=== PATIENT | male | born 1950 | race Caucasian/White ===

== ENCOUNTER → 2017-03-19 | Outpatient (CLI) | payer OTHER ==
[~2017-03-19] MED LIST: ALDACTONE PO; ALFUZOSIN HCL10 MG PO; AMBIEN10 MG PO; AMIODARONE PO; ASPIR-TRIN325 MG PO; ASPIRIN PO; ASPIRIN81 M2 PO; AUGMENTIN PO; CORDARONE200 M1 PO; ELIQUIS5 MG PO; FOLIC ACID1 MG PO; FUROSEMIDE40 MG PO; K-DUR20 ME2 PO; LANOXIN PO; LOPID600 MG PO; METOPROLOL PO; METOPROLOL SUC100 MG PO; MONTELUKAST SOD10 MG PO; PLAVIX PO; PRAVASTATIN SOD40 MG PO; RYTHMOL150 M1 PO; RYTHMOL150 MG PO; SYMBICORT INH; THIAMINE HCL100 M1 PO; TOPROL XL PO; TRAZODONE PO; VITAMIN B-1100 M1 PO; ZESTRIL5 MG PO
--- NOTE | ~2017-03-19 | CT2 ---
[facility] A Service of [facility] RADIOLOGY TEXT RESULTS PATIENT: DONOVAN BRYAN LOCATION: [facility] : 46 UNIT #: [id number] AGE: [address]: Gino Lane MD SEX: M ORDER DR: [id number] [facility] [address]. [place], [place] [address] [id number] O MR#: [id number] Acc #: [id number] NAME: DONOVAN BRYAN : 1950 SEX: M STUDY DATE/TIME: 03/19/2017 12:07 UNIT: [facility] ROOM: STUDY DESCRIPTION: CT Abd and Pelv W Cont Attending Physician: Gino Lane M.D. Referring Physician: Gino Lane M.D. Ordering Physician: Gino Lane M.D. Primary Care Physician: Bety Wilkerson M.D. MEDICAL IMAGING REPORT This report is preliminary unless electronic signature is present EXAM Abdomen and pelvis CT with contrast 03/19/2017. INDICATIONS 67-year-old male with history of prostate cancer. Recent diagnosis of prostate cancer; difficulty urinating with urinary frequency for 2-3 months. Observation for suspected malignant neoplasm and active malignancy. Metastatic screening. TECHNIQUE Contrast enhanced CT abdomen and pelvis was performed. This CT exam was performed with one or more of the following radiation dose reduction techniques: automatic exposure control, adjustment of mA and/or kV according to patient size, and iterative reconstruction. COMPARISON No comparisons. FINDINGS CT ABDOMEN: Included lung bases demonstrate emphysema. No suspicious pulmonary nodule. No pericardial effusion or pleural effusion. Aorta demonstrates atherosclerotic change. Spleen, adrenal glands, pancreas, and gallbladder unremarkable. There is mild fatty infiltration of the liver. Kidneys demonstrate cortical scarring, but are otherwise unremarkable. CT PELVIS: The bladder demonstrates prolapse into the pelvis. The prostate is enlarged, measuring 3.9 x 4.6 cm with mass effect upon the bladder base. No bladder wall thickening. No drainable fluid collection in the pelvis. [facility] A Service of [facility] RADIOLOGY TEXT RESULTS PATIENT: DONOVAN BRYAN [facility] #: [id number] : 46 UNIT #: [id number] AGE: [address]: Gino Lane MD SEX: M ORDER DR: Moderate stool burden in the colon. Appendix normal. No retroperitoneal adenopathy or pelvic adenopathy. Inguinal canals unremarkable. There are degenerative changes in the lower lumbar spine related to degenerative disc disease, and there is loss of the expected lumbar curve, but no acute fracture or malalignment. No suspicious bone lesion. Bone scan would be complementary for further assessment, if there is concern for metastases. There are chronic rib fractures bilaterally. IMPRESSION 1. No findings to suggest metastatic disease in the abdomen or pelvis. 2. Prostatomegaly with mass effect on the bladder. No adenopathy. 3. Fatty infiltration of the liver. 4. Cortical scarring of the kidneys. 5. Degenerative change of the lumbar spine. No suspicious bone lesion. Dictated by... Angel Pizarro M.D. THIS IS AN ELECTRONICALLY VERIFIED REPORT Angel Pizarro M.D. at 03/19/2017 4:19 PM Preston TD: 03/19/2017 14:42 JOB #: [id number] MEDICAL IMAGING REPORT Page 1 of 1 COPY
[2017-03-19 12:40] LABS: POC - CREATININE 0.88 mg/dL (0.64-1.27); POC - GFR >60.0 mL/min (>60)
== END | disposition home or self-care (01) ==
LOC: CCAT 11:06
PROVIDERS: Urology
DX: C61 Malignant neoplasm of prostate (principal); K76.0 Fatty (change of) liver, not elsewhere classified; N28.89 Other specified disorders of kidney and ureter; M47.896 Other spondylosis, lumbar region
CPT/HCPCS: 74177; 82565; Q9967

== ENCOUNTER → 2017-04-02 | Outpatient (CLI) | payer OTHER ==
--- NOTE | ~2017-04-02 | CR181 ---
[facility] A Service of [facility] RADIOLOGY TEXT RESULTS PATIENT: DONOVAN BRYAN LOCATION: [facility] : 46 UNIT #: [id number] AGE: [address]: Gino Lane MD SEX: M ORDER DR: [id number] [facility] [address] [place], [place] [address] [id number] O MR#: [id number] Acc #: [id number] NAME: DONOVAN BRYAN : 1950 SEX: M STUDY DATE/TIME: 04/02/2017 13:14 UNIT: [facility] ROOM: STUDY DESCRIPTION: CR Lumbar Spine 2 or 3 Views Attending Physician: Gino Lane M.D. Referring Physician: Gino Lane M.D. Ordering Physician: Gino Lane M.D. Primary Care Physician: Bety Wilkerson M.D. MEDICAL IMAGING REPORT This report is preliminary unless electronic signature is present EXAM 3 views were spine 04/02/2017 HISTORY Hot spot on bone scan. Prostate cancer. COMPARISON Whole-body bone scan 03/19/20192016. Lumbar spine radiographs 01/08/2017. FINDINGS No suspicious osteolytic or osteoblastic lesions are identified. There is levoscoliotic curvature centered at L3-4. Advanced diminished disc height is present at L3-4, L4-5 and L5-S1, slightly more eccentric to the right at L3-4 and L4-5. Multilevel marginal osteophyte formation is present, greatest in the L2-3 through L4-5. Facet arthropathy is present, particularly on the right at L4-5 and bilaterally at L5-S1. No suspicious osteolytic or osteoblastic lesions are identified. No sacroiliac joint diastasis. No fracture or subluxation is seen. IMPRESSION 1. Advanced multilevel degenerative changes of the lumbar spine, as described in the report. 2. No convincing evidence of osseous metastatic disease in the lumbar spine. No significant change from 01/08/2017. 3. No acute findings. Dictated by... Ina Wilkes M.D. THIS IS AN ELECTRONICALLY VERIFIED REPORT STS. [facility] A Service of [facility] RADIOLOGY TEXT RESULTS PATIENT: DONOVAN BRYAN LOCATION: [facility] #: [id number] : 46 UNIT #: [id number] AGE: [address]: Gino Lane MD SEX: M ORDER DR: Ina Wilkes M.D. at 04/05/2017 8:32 AM GOPI/dario TD: 04/02/2017 20:27 JOB #: [id number] MEDICAL IMAGING REPORT Page 1 of 1 COPY
--- NOTE | ~2017-04-02 | CR229 ---
[facility] A Service of [facility] & [facility] RADIOLOGY TEXT RESULTS PATIENT: DONOVAN BRYAN LOCATION: [facility] : 48 UNIT #: [id number] AGE: [address]: Gino Lane MD SEX: M ORDER DR: [id number] [facility] [address] [place], [place] [address] [id number] O MR#: [id number] Acc #: [id number] NAME: DONOVAN BRYAN : 1950 SEX: M STUDY DATE/TIME: 04/02/2017 13:11 UNIT: [facility] ROOM: STUDY DESCRIPTION: CR Shoulder Min 2 View Lt Attending Physician: Gino Lane M.D. Referring Physician: Gino Lane M.D. Ordering Physician: Gino Lane M.D. Primary Care Physician: Bety Wilkerson M.D. MEDICAL IMAGING REPORT This report is preliminary unless electronic signature is present EXAM 3 views left shoulder 04/02/2017 HISTORY Hot spots on bone scan. Prostate cancer. COMPARISON Whole body bone scan 04/02/2017. AP portable chest 08/08/2016. No dedicated left shoulder radiographs at this institution for comparison. FINDINGS There are severe degenerative changes of the left shoulder joint. There is flattening of the articular surface of the scapular glenoid and humeral head with articular sclerosis. There is undersurface osteophyte formation of the glenoid and the humeral head. These findings appear similar to the 08/08/2016 examination. No suspicious osteolytic or osteoblastic lesions are identified. No acromioclavicular or coracoclavicular separation. There are old left fifth through ninth rib fractures posteriorly. Left lung apex is clear. IMPRESSION 1. Severe degenerative changes of the left shoulder as described in report. No convincing evidence of osseous metastatic disease in left shoulder. 2. Multiple old healed left rib fractures. Dictated by... Ina Wilkes M.D. THIS IS AN ELECTRONICALLY VERIFIED REPORT Ina Wilkes M.D. at 04/05/2017 8:33 AM STS. [facility] A Service of [facility] & [facility] RADIOLOGY TEXT RESULTS PATIENT: DONOVAN BRYAN LOCATION: [facility] #: [id number] : 46 UNIT #: [id number] AGE: [address]: Gino Lane MD SEX: M ORDER DR: GOPI/dario TD: 04/02/2017 20:22 JOB #: [id number] MEDICAL IMAGING REPORT Page 1 of 1 COPY
--- NOTE | ~2017-04-02 | CR58 ---
[facility] A Service of [facility] & [facility] RADIOLOGY TEXT RESULTS PATIENT: DONOVAN BRYAN LOCATION: [facility] : 46 UNIT #: [id number] AGE: [address]: Gino Lane MD SEX: M ORDER DR: [id number] [facility] [address] [place], [place] [address] [id number] O MR#: [id number] Acc #: [id number] NAME: DONOVAN BRYAN : 1950 SEX: M STUDY DATE/TIME: 04/02/2017 13:04 UNIT: [facility] ROOM: STUDY DESCRIPTION: CR Cervical Spine 2 or 3 Views Attending Physician: Gino Lane M.D. Referring Physician: Gino Lane M.D. Ordering Physician: Gino Lane M.D. Primary Care Physician: Bety Wilkerson M.D. MEDICAL IMAGING REPORT This report is preliminary unless electronic signature is present EXAMINATION 3 views of the cervical spine. DATE 04/02/2017 HISTORY Hot spots on bone scan. History of arthritis. Prostate cancer diagnosed a few weeks ago. COMPARISON Whole-body bone scan, 04/02/2017. No prior cervical spine imaging at this institution for comparison. FINDINGS There is advanced loss of disc height with [id number] configuration at C3-4 and C5-6. Posterior osteophyte formation is also thought to be present at C4-5 and C5-6. Moderately advanced diminished disc height is present at C6-7 and C7-T1 with anterior osteophyte formation. There is 3 mm anterolisthesis C2 upon C3. Multilevel advanced cervical facet arthropathy is present, thought to be greatest on the left at C2-3, bilaterally at C4-5, the right at C5-6, bilaterally at C6-7. No abnormal prevertebral soft tissue swelling is seen. There is dense calcification of the thyroid cartilage. No suspicious osteolytic or osteoblastic lesions are seen. IMPRESSION 1. Multilevel severe degenerative changes of the cervical spine as described in the report. No convincing evidence of osseous metastatic disease. Please refer to report for full description of degenerative findings. [facility] A Service of [facility] & [facility] RADIOLOGY TEXT RESULTS PATIENT: DONOVAN BRYAN LOCATION: [facility] #: [id number] : 46 UNIT #: [id number] AGE: [address]: Gino Lane MD SEX: M ORDER DR: Dictated by... Ina Wilkes M.D. THIS IS AN ELECTRONICALLY VERIFIED REPORT Ina Wilkes M.D. at 04/05/2017 8:32 AM GOPI/juanito TD: 04/02/2017 18:39 JOB #: [id number] MEDICAL IMAGING REPORT Page 1 of 1 COPY
--- NOTE | ~2017-04-02 | NM8 ---
[facility] A Service of [facility] RADIOLOGY TEXT RESULTS PATIENT: DONOVAN BRYAN LOCATION: [facility] : 46 UNIT #: [id number] AGE: [address]: Gino Lane MD SEX: M ORDER DR: [id number] [facility] [address] [place], [place] [address] [id number] O MR#: [id number] Acc #: [id number] NAME: DONOVAN BRYAN : 1950 SEX: M STUDY DATE/TIME: 04/02/2017 11:38 UNIT: [facility] ROOM: STUDY DESCRIPTION: AK Bone or Joint Whole Body Attending Physician: Gino Lane M.D. Referring Physician: Gino Lane M.D. Ordering Physician: Gino Lane M.D. Primary Care Physician: Bety Wilkerson M.D. MEDICAL IMAGING REPORT This report is preliminary unless electronic signature is present EXAM Whole-body bone scan HISTORY 67-year-old male left shoulder pain, hips and low back pain. History of prostate cancer, recently diagnosed. COMPARISON Lumbar spine series 04/02/2017. Left shoulder 04/02/2017. C-spine series 04/02/2017. CT abdomen and pelvis 03/19/2017. TECHNIQUE Whole-body selected spot images were performed of the axial and appendicular skeleton following the intravenous administration of 27.4 mCi Tc-99m MDP. FINDINGS Examination demonstrates marked increased uptake within the left shoulder which corresponds to degenerative arthropathy of the left shoulder with changes within the left humeral head suggesting possible avascular necrosis. Correlate for risk factors. Multifocal degenerative uptake is noted within the cervical spine which is confirmed by conventional radiographs demonstrating advanced degenerative disc changes with fusion across the C3-C4, C5-C6 disc spaces and extensive facet arthropathy. Multifocal degenerative uptake noted in the lumbar spine corresponding to degenerative changes noted on recent CT scan. Increased uptake projecting in the maxillofacial region may represent shine through from cervical spine uptake, possibly related to periodontal disease or maxillary sinus disease. Uptake is seen within the lateral aspect the right foot along the fifth metatarsal, this may be post-traumatic in nature. Correlate with history. Bilateral renal activity noted with mild stasis of activity within the right renal collecting system. Recent CT demonstrated no STS. [facility] A Service of [facility] RADIOLOGY TEXT RESULTS PATIENT: DON[id number] : 46 UNIT #: [id number] AGE: [address]: Gino Lane MD SEX: M ORDER DR: evidence of obstruction, but there is some suggestion of slight asymmetric renal flow. Normal bladder activity noted. IMPRESSION 1. No definite bone scan findings to suggest osseous metastatic disease. 2. Multifocal degenerative uptake noted within the cervical spine, lumbar spine and left shoulder. Changes within the left shoulder raise a concern for preexisting avascular necrosis. 3. Mild urinary stasis right kidney, though no significant pathology noted on the patient's recent CT scan, though there does appear to be slight asymmetry in renal enhancement. 4. Focal uptake within the lateral aspect of the right foot in the region of the fifth metatarsal. This may be degenerative or post-traumatic in nature. Dictated by... Harjinder Morrell M.D. THIS IS AN ELECTRONICALLY VERIFIED REPORT Harjinder Morrell M.D. at 04/02/2017 10:24 PM Yordy TD: 04/02/2017 17:30 JOB #: [id number] MEDICAL IMAGING REPORT Page 1 of 1 COPY
== END | disposition home or self-care (01) ==
LOC: CNUC 08:28
DX: C61 Malignant neoplasm of prostate (principal); R94.8 Abnormal results of function studies of other organs and systems; M47.896 Other spondylosis, lumbar region; M47.892 Other spondylosis, cervical region
CPT/HCPCS: 72040; 72100; 73030; 78306; A9503

== ENCOUNTER → 2017-05-26 | Outpatient (CLI) | payer OTHER ==
--- NOTE | ~2017-05-26 | CR80 ---
[facility] A Service of [facility] & [facility] RADIOLOGY TEXT RESULTS PATIENT: DONOVAN BRYAN LOCATION: [facility] : 46 UNIT #: [id number] AGE: [address]: Gino Lane MD SEX: M ORDER DR: [id number] [facility] [address]. [place], [place] [address] [id number] O MR#: [id number] Acc #: [id number] NAME: DONOVAN BRYAN. : 1950 SEX: M STUDY DATE/TIME: 05/26/2017 9:07 UNIT: [facility] ROOM: STUDY DESCRIPTION: CR Cystogram Min 3 Views SI Attending Physician: Gino Lnae M.D. Referring Physician: Gino Lane M.D. Ordering Physician: Gino Lane M.D. Primary Care Physician: Bety Wilkerson M.D. MEDICAL IMAGING REPORT This report is preliminary unless electronic signature is present EXAM Cystogram, 05/26/2017 HISTORY One week status post prostatectomy. Evaluate for leak. COMPARISON None PROCEDURE Study performed with 1.3 minutes of fluoroscopy and 9 spot images. FINDINGS No evidence of leak or reflux. A full bottle of Cystografin was easily tolerated with only mild discomfort. Postvoid image shows some minimal residual. IMPRESSION Normal cystogram. Dictated by... Antoine Sol M.D. THIS IS AN ELECTRONICALLY VERIFIED REPORT Antoine Sol M.D. at 05/27/2017 5:04 PM NABOR/delfino TD: 05/27/2017 09:41 JOB #: [id number] MEDICAL IMAGING REPORT Page 1 of 1 COPY
== END | disposition home or self-care (01) ==
LOC: CRAD 08:15
DX: C61 Malignant neoplasm of prostate (principal)
CPT/HCPCS: 74430; Q9958